=== PATIENT | female | born 1950 | race Caucasian/White ===

== ENCOUNTER → 2017-05-05 | Outpatient (CLI) | payer OTHER ==
[~2017-05-05] MED LIST: ALEVE220 MG PO; ASPIR 8181 M1 PO; BETAPACE80 MG PO; Betapace,Sorine PO; DILTIAZEM 24HR120 MG PO; GLUCOTROL XL2.5 MG PO; LOPRESSOR50 MG PO; METOPROLOL SUCC50 MG PO; NEXIUM40 MG PO; OMEPRAZOLE40 M1 PO; REFRESH TEARS15 ML BOTH EYES; TAPAZOLE10 MG PO; TYLENOL EXTRA500 MG PO; XARELTO20 MG PO
== END | disposition home or self-care (01) ==
LOC: NUC 07:52
DX: E05.10 Thyrotoxicosis with toxic single thyroid nodule without thyrotoxic crisis or storm (principal)
CPT/HCPCS: 78014; 78999; A9516

== ENCOUNTER 2017-05-10 08:14 | Inpatient (IN) | payer OTHER ==
[~2017-05-10] VITALS: Ht 157.5 cm; Wt 99.7 kg
[~2017-05-10 08:14] MED LIST changes: -BETAPACE80 MG PO; -DILTIAZEM 24HR120 MG PO; -GLUCOTROL XL2.5 MG PO; -LOPRESSOR50 MG PO; -OMEPRAZOLE40 M1 PO; -REFRESH TEARS15 ML BOTH EYES; -TAPAZOLE10 MG PO; -TYLENOL EXTRA500 MG PO; -XARELTO20 MG PO
[2017-05-10 08:43] LABS: EOSINOPHIL (%) 3.5 % (0-5); EOSINOPHIL COUNT 0.2 K/uL (0-0.3); HEMATOCRIT 47.4 % (36.0-46.0); IMMATURE GRANULOCYTE (%) 0.2 % (0.0-0.7); INSTRUMENT ABS NEUTROPHIL CT 3.8 K/uL; LYMPHOCYTE COUNT 1.7 K/uL (1.0-2.8); MCH 28.2 PG (29.0-34.0); MCHC 31.9 G/DL (30.0-36.0); MCV 88.6 FL (83-99); MEAN PLAT.VOLUME 11.5 uM^3 (9.5-12.4); MONOCYTE (%) 5.3 % (3-12); MONOCYTE COUNT 0.3 K/uL (0-0.8); NEUTROPHIL (%) 62.4 % (45-76); NEUTROPHIL COUNT 3.8 K/uL (1.8-6.4); PLATELET COUNT 188 K/uL (156-360); RBC DIS.WIDTH-CV 12.7 % (11.8-14.6); RBC DIS.WIDTH-SD 41.2 % (39-53); RED BLOOD COUNT 5.35 M/uL (3.80-5.20); WHITE BLOOD COUNT 6.1 K/uL (4.1-10.2)
[2017-05-10 09:02] LABS: TROP-I INTERPRETATION NEGATIVE; TROPONIN-I < 0.01 ng/mL (0.0-0.30)
[2017-05-10 09:27] LABS: CHLORIDE 108 mEq/L (99-109); POTASSIUM 4.3 mEq/L (3.7-5.4); SODIUM 143 mEq/L (136-147)
[2017-05-10 09:29] LABS: MAGNESIUM 1.9 mg/dL (1.3-2.7)
[2017-05-10 09:30] LABS: GLUCOSE 165 mg/dL (70-99)
[2017-05-10 09:32] LABS: ANION GAP 8 MEQ/L (2-14)
[2017-05-10 09:34] LABS: GFR ESTIMATE (CALCULATED) > 59 mL/min/
[2017-05-10 09:35] LABS: UREA NITROGEN (BUN) 19 mg/dL (9-23)
[2017-05-10] MEDS ORDERED: OMEPRAZOLE40 M1 PO (10:32)
[2017-05-10] MEDS ORDERED: GLUCOTROL XL2.5 MG PO (10:33)
[2017-05-10] MEDS ORDERED: BETAPACE80 MG PO (10:33)
[2017-05-10] MEDS ORDERED: XARELTO20 MG PO (10:34)
[2017-05-10] MEDS ORDERED: TYLENOL EXTRA500 MG PO (10:35)
[2017-05-10] MEDS ORDERED: REFRESH TEARS15 ML BOTH EYES (10:35)
[2017-05-10 12:15] VITALS: BP 140/68; BP 140/86
[2017-05-10 15:19] LABS: ADD MIUA? YES; BILIRUBIN NEGATIVE; BLOOD NEGATIVE; COLOR STRAW ((YELLOW)); GLUCOSE (STRIP) NEGATIVE; KETONES NEGATIVE; LEUKOCYTES TRACE; NITRITE NEGATIVE; PROTEIN (STRIP) NEGATIVE; SPECIFIC GRAVITY 1.008 (1.000-1.030); UROBILINOGEN 0.2 MG/DL (0.2-1.0)
[2017-05-10 15:21] LABS: TROP-I INTERPRETATION NEGATIVE; TROPONIN-I 0.02 ng/mL (0.0-0.30)
[2017-05-10 15:28] VITALS: BP 132/60
[2017-05-10 15:49] LABS: BACTERIA NONE SEEN /HPF; EPITHELIAL CELLS RARE /HPF; MUCUS NONE SEEN /LPF; UCUL ADDED? NO; WHITE BLOOD CELLS 0-5 /HPF (0-5)
[2017-05-10 19:08] VITALS: BP 103/62
[2017-05-10 21:25] LABS: TROP-I INTERPRETATION NEGATIVE; TROPONIN-I 0.02 ng/mL (0.0-0.30)
[2017-05-10 22:36] VITALS: BP 114/73
[2017-05-11] VITALS (8 sets, daily range): BP systolic 103–134; BP diastolic 62–97
[2017-05-11 05:51] LABS: HEMATOCRIT 41.9 % (36.0-46.0); MCH 27.8 PG (29.0-34.0); MCHC 31.3 G/DL (30.0-36.0); MEAN PLAT.VOLUME 11.4 uM^3 (9.5-12.4); PLATELET COUNT 178 K/uL (156-360); RBC DIS.WIDTH-CV 12.8 % (11.8-14.6); RBC DIS.WIDTH-SD 41.6 % (39-53); RED BLOOD COUNT 4.71 M/uL (3.80-5.20); WHITE BLOOD COUNT 7.7 K/uL (4.1-10.2)
[2017-05-11 06:16] LABS: ANION GAP 7 MEQ/L (2-14); CHLORIDE 109 MEQ/L (99-109); GFR ESTIMATE (CALCULATED) > 59 mL/min/; GLUCOSE 134 mg/dL (70-99); MAGNESIUM 1.9 mg/dl (1.3-2.7); POTASSIUM 4.3 MEQ/L (3.7-5.4); SAMPLE HEMOLYSIS CHECK 0; SAMPLE ICTERIC CHECK 0; SAMPLE LIPEMIA CHECK 0; SODIUM 143 MEQ/L (136-147); UREA NITROGEN (BUN) 13 mg/dL (9-23)
[2017-05-12 04:03] VITALS: BP 117/56
[2017-05-12 07:27] VITALS: BP 111/77
[2017-05-12 07:54] LABS: POINT-OF-CARE METER ID UU13113698
[2017-05-12] MEDS ORDERED: DILTIAZEM 24HR120 MG PO (10:27)
[2017-05-12] MEDS ORDERED: TAPAZOLE10 MG PO (10:29)
[2017-05-12] MEDS ORDERED: LOPRESSOR50 MG PO (10:30)
[2017-05-12 11:28] VITALS: BP 107/69
== END 2017-05-12 11:33 | disposition home or self-care (01) | DRG 310 ==
LOC: EME 08:14 → EDOF 10:37 → 4EAST 10:37 → ENRESERV 10:38 → 4EAST 12:10
PROVIDERS: Emergency Medicine; Internal Medicine
DX: I48.0 Paroxysmal atrial fibrillation (principal); E05.10 Thyrotoxicosis with toxic single thyroid nodule without thyrotoxic crisis or storm; E11.9 Type 2 diabetes mellitus without complications; E66.01 Morbid (severe) obesity due to excess calories; G47.30 Sleep apnea, unspecified; K21.9 Gastro-esophageal reflux disease without esophagitis; I95.9 Hypotension, unspecified; Z68.39 Body mass index [BMI] 39.0-39.9, adult; Z79.01 Long term (current) use of anticoagulants; Z79.84 Long term (current) use of oral hypoglycemic drugs; Z87.891 Personal history of nicotine dependence
CPT/HCPCS: 71010; 80048; 81003; 82948; 83735; 83880; 84439; 84443; 84484; 85025; 85027; 87086; 93005; 99281; 99285; J1815; J3475; J7030; J7050

== ENCOUNTER 2017-05-20 21:54 | Emergency (ER) | payer OTHER ==
[~2017-05-20] VITALS: Ht 157.5 cm; Wt 101.6 kg
[~2017-05-20 21:54] MED LIST changes: +BETAPACE80 MG PO; +DILTIAZEM 24HR120 MG PO; +GLUCOTROL XL2.5 MG PO; +LOPRESSOR50 MG PO; +OMEPRAZOLE40 M1 PO; +REFRESH TEARS15 ML BOTH EYES; +TAPAZOLE10 MG PO; +TYLENOL EXTRA500 MG PO; +XARELTO20 MG PO
[2017-05-20 22:44] LABS: HEMATOCRIT 42.4 % (36.0-46.0); MCHC 31.6 G/DL (30.0-36.0); MCV 88.7 FL (83-99); MEAN PLAT.VOLUME 11.3 uM^3 (9.5-12.4); PLATELET COUNT 186 K/uL (156-360); RBC DIS.WIDTH-CV 12.8 % (11.8-14.6); RED BLOOD COUNT 4.78 M/uL (3.80-5.20); WHITE BLOOD COUNT 8.3 K/uL (4.1-10.2)
[2017-05-20 22:56] LABS: CHLORIDE 108 mEq/L (99-109); POTASSIUM 3.9 mEq/L (3.7-5.4); SODIUM 144 mEq/L (136-147)
[2017-05-20 22:57] LABS: MAGNESIUM 1.7 mg/dL (1.3-2.7)
[2017-05-20 23:00] LABS: TOTAL BILIRUBIN 0.2 mg/dL (0.0-1.0)
[2017-05-20 23:22] LABS: GLUCOSE 132 mg/dL (70-99)
[2017-05-20 23:23] LABS: ANION GAP 10 MEQ/L (2-14)
[2017-05-20 23:25] LABS: ALKALINE PHOSPHATASE 65 IU/L (3-129)
[2017-05-20 23:26] LABS: GFR ESTIMATE (CALCULATED) > 59 mL/min/
[2017-05-20 23:27] LABS: UREA NITROGEN (BUN) 14 mg/dL (9-23)
[2017-05-20 23:29] LABS: LIPASE 15 U/L (1.0-51.0)
[2017-05-21 00:45] LABS: ADD MIUA? YES; BILIRUBIN NEGATIVE; BLOOD SMALL; COLOR YELLOW ((YELLOW)); GLUCOSE (STRIP) NEGATIVE; KETONES NEGATIVE; LEUKOCYTES LARGE; NITRITE NEGATIVE; PROTEIN (STRIP) NEGATIVE; SPECIFIC GRAVITY 1.019 (1.000-1.030); UROBILINOGEN 0.2 MG/DL (0.2-1.0)
[2017-05-21 00:52] LABS: BACTERIA RARE /HPF; EPITHELIAL CELLS 1+ /HPF; HYALINE CASTS 0-5 /LPF; MUCUS 1+ /LPF; UCUL ADDED? YES; WHITE BLOOD CELLS 40-50 /HPF (0-5)
[2017-05-21 00:57] VITALS: BP 130/78
[2017-05-21] MEDS ORDERED: MACROBID100 MG PO (00:59)
== END 2017-05-21 01:41 | disposition home or self-care (01) ==
LOC: EME 21:54
PROVIDERS: Emergency Medicine
DX: N39.0 Urinary tract infection, site not specified (principal); R00.2 Palpitations; E05.90 Thyrotoxicosis, unspecified without thyrotoxic crisis or storm; I48.91 Unspecified atrial fibrillation; Z79.01 Long term (current) use of anticoagulants; K21.9 Gastro-esophageal reflux disease without esophagitis; Z87.891 Personal history of nicotine dependence; Z88.0 Allergy status to penicillin
CPT/HCPCS: 71020; 80053; 81003; 83690; 83735; 83880; 84100; 84439; 84443; 85027; 87086; 93005; 99281; 99285

== ENCOUNTER → 2017-05-25 | Outpatient (CLI) | payer OTHER ==
[~2017-05-25] MED LIST changes: +MACROBID100 MG PO
== END | disposition home or self-care (01) ==
LOC: NUC 10:16
DX: E05.90 Thyrotoxicosis, unspecified without thyrotoxic crisis or storm (principal)
CPT/HCPCS: 79005; A9517

== ENCOUNTER 2017-12-12 11:59 | Observation (INO) | payer OTHER ==
[~2017-12-12] VITALS: Ht 157.5 cm; Wt 103.3 kg
[2017-12-12 12:40] LABS: BASOPHIL (%) 0.8 % (0-1); BASOPHIL COUNT 0.1 K/uL (0-0.1); EOSINOPHIL (%) 2.5 % (0-5); EOSINOPHIL COUNT 0.2 K/uL (0-0.3); HEMATOCRIT 48.4 % (36.0-46.0); HEMOGLOBIN 16.1 G/DL (11.9-15.5); IMMATURE GRANULOCYTE (%) 0.3 % (0.0-0.7); LYMPHOCYTE (%) 21.7 % (15-42); LYMPHOCYTE COUNT 1.6 K/uL (1.0-2.8); MCH 29.7 PG (29.0-34.0); MCHC 33.3 G/DL (30.0-36.0); MCV 89.1 FL (83-99); MONOCYTE (%) 4.4 % (3-12); MONOCYTE COUNT 0.3 K/uL (0-0.8); NEUTROPHIL (%) 70.3 % (45-76); NEUTROPHIL COUNT 5.1 K/uL (1.8-6.4); PLATELET COUNT 188 K/uL (156-360); RBC DIS.WIDTH-CV 12.9 % (11.8-14.6); RED BLOOD COUNT 5.43 M/uL (3.80-5.20); WHITE BLOOD COUNT 7.2 K/uL (4.1-10.2)
[2017-12-12 12:46] LABS: INTER. NORMALIZED RATIO 1.3
[2017-12-12 12:49] LABS: PTT 37.8 SEC (25-37)
[2017-12-12 12:51] LABS: CHLORIDE 107 mEq/L (99-109); POTASSIUM 4.2 mEq/L (3.7-5.4); SODIUM 142 mEq/L (136-147)
[2017-12-12 12:52] LABS: GLUCOSE 167 mg/dL (70-99)
[2017-12-12 12:56] LABS: CREATININE 0.8 mg/dL (0.6-1.3); GFR ESTIMATE (CALCULATED) > 59 mL/min/
[2017-12-12 12:57] LABS: UREA NITROGEN (BUN) 14 mg/dL (9-23)
[2017-12-12 13:01] LABS: TROP-I INTERPRETATION NEGATIVE; TROPONIN-I < 0.01 ng/mL (0.0-0.30)
[2017-12-12] MEDS ORDERED: TRAMADOL HCL50 MG PO (14:10)
[2017-12-12] MEDS ORDERED: ELIQUIS5 MG PO (14:10)
[2017-12-12] MEDS ORDERED: LEVOTHYROXINE100 MCG PO (14:12)
[2017-12-12 14:37] LABS: THYROTROPIN (TSH) 3.7 MIU/L (0.4-5.5)
[2017-12-12 15:11] LABS: MAGNESIUM 1.8 mg/dl (1.3-2.7)
[2017-12-12 15:33] LABS: TROP-I INTERPRETATION NEGATIVE; TROPONIN-I < 0.01 ng/mL (0.0-0.30)
[2017-12-12 16:03] VITALS: BP 116/88
[2017-12-12 17:32] VITALS: BP 130/73
[2017-12-12 19:10] VITALS: BP 111/56
[2017-12-12 21:33] LABS: TROP-I INTERPRETATION NEGATIVE; TROPONIN-I < 0.01 ng/mL (0.0-0.30)
[2017-12-12 23:05] VITALS: BP 102/58
[2017-12-13 03:46] VITALS: BP 113/70
[2017-12-13 07:33] VITALS: BP 121/64
[2017-12-13] MEDS ORDERED: CARDIZEM90 MG PO (08:40)
== END 2017-12-13 09:45 | disposition home or self-care (01) ==
LOC: EME 11:59 → EDOF 14:04 → ENRESERV 14:05 → 4SOUTH 15:17
PROVIDERS: Emergency Medicine; Hospitalist
DX: I48.91 Unspecified atrial fibrillation (principal); E11.9 Type 2 diabetes mellitus without complications; E05.90 Thyrotoxicosis, unspecified without thyrotoxic crisis or storm; Z98.890 Other specified postprocedural states; R00.2 Palpitations; Z90.49 Acquired absence of other specified parts of digestive tract; Z82.49 Family history of ischemic heart disease and other diseases of the circulatory system; Z82.3 Family history of stroke; Z88.0 Allergy status to penicillin; Z79.01 Long term (current) use of anticoagulants; Z79.84 Long term (current) use of oral hypoglycemic drugs
CPT/HCPCS: 71045; 80048; 83735; 84443; 84484; 85025; 85610; 85730; 93005; 99281; 99285; G0378